=== PATIENT | female | born 1980 | race Caucasian/White ===

== ENCOUNTER 2022-07-05 08:43 | Day surgery (SDC) | payer OTHER ==
[~2022-07-05] VITALS: Ht 162.6 cm; Wt 98.0 kg
[2022-07-05] MEDS ORDERED: LIDOCAINE 2% 1000 MG/50 ML VIAL INJ ONE (09:15)
[2022-07-05] MEDS ORDERED: ACETAMINOPHEN 650 MG/20.3 ML UDC PO SCH (10:20)
== END 2022-07-05 11:50 | disposition home or self-care (01) ==
LOC: MDS 08:43 → MMU 08:44 → MDS 11:50
PROVIDERS: ATTEND Internal Medicine Gastroenterology
DX: K75.81 Nonalcoholic steatohepatitis (NASH) (principal); J45.909 Unspecified asthma, uncomplicated; F32.A Depression, unspecified; F41.9 Anxiety disorder, unspecified; E11.9 Type 2 diabetes mellitus without complications; F17.210 Nicotine dependence, cigarettes, uncomplicated; Z88.1 Allergy status to other antibiotic agents; Z79.84 Long term (current) use of oral hypoglycemic drugs; Z80.8 Family history of malignant neoplasm of other organs or systems
CPT/HCPCS: 47000; 76942; J2001; Q0092